=== PATIENT | female | born 1955 | race Caucasian/White ===

== ENCOUNTER 2017-06-05 06:34 | Emergency (ER) | payer OTHER ==
[~2017-06-05] VITALS: Ht 162.6 cm; Wt 68.2 kg
[2017-06-05 06:39] VITALS: BP 135/95
[2017-06-05] MEDS ORDERED: SIMV-261 PO (06:46)
[2017-06-05] MEDS ORDERED: LISI-661 PO (06:46)
== END 2017-06-05 08:36 | disposition home or self-care (01) ==
LOC: EMS 06:35
DX: H60.91 Unspecified otitis externa, right ear (principal); H93.11 Tinnitus, right ear; I10 Essential (primary) hypertension; E78.00 Pure hypercholesterolemia, unspecified; Z88.8 Allergy status to other drugs, medicaments and biological substances
CPT/HCPCS: 99283

== ENCOUNTER 2019-02-24 17:31 | Emergency (ER) | payer MEDICARE, OTHER ==
[~2019-02-24] VITALS: Ht 157.5 cm; Wt 52.7 kg
[~2019-02-24 17:31] MED LIST: LISI-661 PO; SIMV-261 PO
[2019-02-24] MEDS ORDERED: ASPI81 PO (17:40)
[2019-02-24 19:15] LABS: APPEARANCE,URINE TURBID (CLEAR); BILIRUBIN,URINE PRELIM. POSITIVE (NEGATIVE); GLUCOSE, URINE (UA) NEGATIVE (NEGATIVE); KETONES,URINE 40 mg/dL (NEGATIVE); LEUKOCYTE ESTERASE ,URINE LARGE (NEGATIVE); NITRATE,URINE POSITIVE (NEGATIVE); OCCULT BLOOD,URINE LARGE (NEGATIVE); PROTEIN,URINE SEE CONFIRM (NEGATIVE)
[2019-02-24 19:22] LABS: SULFOSALICYLIC ACID,URINE 4+ (Negative)
[2019-02-24 19:23] LABS: RBC,URINE Full Field /HPF (0-2)
[2019-02-24 19:24] LABS: WBC,URINE 26-50 /HPF (0-5)
[2019-02-24 19:25] LABS: BACTERIA,URINE Moderate /HPF (None Seen); SQUAMOUS EPITHELIAL CELL,UR Few /LPF (None Seen)
[2019-02-24 20:50] VITALS: BP 131/85
== END 2019-02-24 21:53 | disposition home or self-care (01) ==
LOC: EMS 17:32
DX: N39.0 Urinary tract infection, site not specified (principal); I10 Essential (primary) hypertension; E78.00 Pure hypercholesterolemia, unspecified; Z88.8 Allergy status to other drugs, medicaments and biological substances; Z79.82 Long term (current) use of aspirin; Z79.899 Other long term (current) drug therapy
CPT/HCPCS: 74176; 87086